=== PATIENT | male | born 1950 | race Caucasian/White ===

== ENCOUNTER → 2019-04-26 12:40 | Outpatient (CLI) | payer OTHER | END | disposition home or self-care (01) | LOC: D.US 12:40 | PROVIDERS: ATTEND Family Medicine | DX: N43.2 Other hydrocele (principal) ==

== ENCOUNTER → 2019-06-29 09:08 | Outpatient (CLI) | payer OTHER | END | disposition home or self-care (01) | LOC: D.CT 09:08 | PROVIDERS: ATTEND Family Medicine | DX: G45.9 Transient cerebral ischemic attack, unspecified (principal) ==

== ENCOUNTER → 2019-12-03 17:19 | Outpatient (CLI) | payer OTHER | END | disposition home or self-care (01) | LOC: D.LABREF 17:19 | PROVIDERS: ATTEND Orthopaedic Surgery | DX: M16.12 Unilateral primary osteoarthritis, left hip (principal) ==

== ENCOUNTER 2020-05-26 08:50 | Inpatient (IN) | payer OTHER ==
[~2020-05-26] VITALS: Ht 200.7 cm; Wt 92.7 kg
[~2020-05-26 08:50] MED LIST: AMIODARONE HCL200 MG PO; BAYER CHEWABLE81 MG PO; ELIQUIS5 MG PO; METOPROLOL TART25 MG PO; MULTAQ400 MG PO; NEXIUM20 MG PO; ZESTRIL40 MG PO
[2020-06-13] MEDS ORDERED: NORVASC10 MG PO (11:34)
[2020-06-13] MEDS ORDERED: ELIQUIS5 MG PO (11:35)
[2020-06-13 12:04] LABS: BASOPHILS 0.9 % (0-2); EOSINOPHILS 1.3 % (0-7); HEMATOCRIT 42.6 % (42.0-54.0); HEMOGLOBIN 14.1 g/dL (13.5-17.5); IMMATURE GRANULOCYTES 0.2 % (0-5); LYMPHOCYTE ABS# 1.01 10x3/uL (1.32-3.57); LYMPHOCYTES 21.7 % (15-50); MCH 32.1 pg (26.0-34.0); MCHC 33.1 g/dL (31.0-37.0); MEAN PLATELET VOLUME 10.5 fL (7.4-10.4); MONOCYTES 13.9 % (2-11); NEUTROPHIL ABS# 2.89 10x3/uL (1.78-5.38); PLATELET COUNT 244 10x3/uL (130-400); RBC 4.39 10x6/uL (4.20-6.10); RDW 13.4 % (11.5-14.5); WBC 4.7 10x3/uL (4.8-10.8)
[2020-06-13 12:06] LABS: BILIRUBIN NEGATIVE (NEGATIVE); KETONE NEGATIVE (NEGATIVE); NITRITE NEGATIVE (NEGATIVE); UROBILINOGEN NORMAL mg/dL (< 2)
[2020-06-13 12:23] LABS: ANION GAP 12.6 mmol/L (8-16); CALCIUM 9.2 mg/dL (8.5-10.1); CARBON DIOXIDE 26.7 mmol/L (21.0-32.0); CREATININE - SERUM 1.2 mg/dL (0.6-1.3); POTASSIUM - SERUM 4.3 mmol/L (3.5-5.1)
[2020-06-13 12:27] LABS: APTT 33.3 SECONDS (22.8-39.4); INR 1.31 (0.85-1.17); PROTIME 15.1 SECONDS (11.6-15.0)
[2020-06-18 06:17] VITALS: BP 135/86; BMI 23.1
[2020-06-18 06:50] LABS: APTT 30.1 SECONDS (22.8-39.4); INR 1.13 (0.85-1.17); PROTIME 13.5 SECONDS (11.6-15.0)
--- NOTE | 2020-06-18 07:58 | NUR ---
CAUTERY PAD PLACED ON RIGHT THIGH. PLASMA BLADE USED ON SETTING 6/8. AQUAMANTYS USED ON SETTING 170. CAUTERY PAD LOT#[id number] EXP.10/14/2021.
[2020-06-18 10:20] VITALS: BP 143/86
--- NOTE | 2020-06-18 10:23 | NUR ---
OPA IN AIRWAY ON ADMIT
--- NOTE | 2020-06-18 11:03 | NUR ---
RECEIVED PATIENT TO ROOM FROM RECOVERY, PATIENT IS AWAKE AND ORIENTED, STATED PAIN IS AT A 7, REMINDED HIM HE JUST RECEIVED PAIN MEDICATION BEFORE COMING DOWN BUT WILL REEVALUATE. VSS, CL IN REACH ICE PACK TO LEFT HIP. CDI. CONTINUE WITH PLAN OF CARE
[2020-06-18 11:25] VITALS: BP 143/86; Ht 200.7 cm; Wt 92.7 kg
[2020-06-18 11:39] VITALS: BP 139/92
[2020-06-18 15:35] VITALS: BP 138/94
--- NOTE | 2020-06-18 16:07 | NUR ---
PATIENT VOIDED ABOUT 150 IN URINAL, PATIENT STATED HE DOES NOT HAVE ANY PAIN JUST UNCOMFORTABLE. DECLINED PAINMEDICATION AT THIS TIME. ICE TO LEFT HIP, CL IN PLACE. CONTINUE WITH PLAN OF CARE
--- NOTE | 2020-06-18 18:14 | NUR ---
PATIENT C/O NOT EMPRYING BLADDER AND FEELS IF HE NEEDS TO GO ALL THE TIME. PATIENT VOIDED 300 BEFORE CATHETER PLACED. BENZ BAG FILLED TO 1200 INSTANTLY, CLAMPED AT 1200 AND TOLD PATIENT WE WILL UNCLAMP AFTER 30 MINUTES TO PREVENT SPASMS. NO OTHER NEEDS AT THIS TIME. CONTINUE WITH PLAN OF CARE
--- NOTE | 2020-06-18 19:00 | NUR ---
REPORT GIVEN BY ELVI WARD
[2020-06-18 19:15] VITALS: BP 143/77
--- NOTE | 2020-06-18 20:00 | NUR ---
PT IS IN BED READING. HE DOES NOT C/O OF PAIN BUT SOME DISCOMFORT. HE REFUSES PAIN MEDS. HE HAS A BENZ CATHETER IN PLACE DRAINING YELLOW URINE. HE HAS SCDS OOON WELL TEDS. PT HAS A PIV IN HIS RIGHT FOREARM WITH 1/2 NS INFUSING AT 50 ML/HR. HIS HIP DRESSING HAS SLIGHT AMT OF DRAINAGE ON IT. ICE PACK PLACED OVER THE DRESSING. PT IS DOZING ON AND OFF. CALL LIGHT WITH IN REACH AND SIDERAILS ELEVATED FOR HIS SAFETY.
--- NOTE | 2020-06-18 23:00 | NUR ---
BENZ BAG EMPTIED PER PT REQUEST. 1800 ML TAKEN FROM THE BAG.
[2020-06-19] VITALS: BP 141/84
--- NOTE | 2020-06-19 00:05 | NUR ---
AWAKE FOR VS. PT HAS NO NEEDS OR C/O AT THIS TIME. HE STILL STATES THAT HE HAS DISCOMFORT BUT NO PAIN. HE DECLINED PAIN MEDS AGAIN. CALL LIKE CLOSE, SIDERAILS ELEVATED.
[2020-06-19 04:00] VITALS: BP 132/94
--- NOTE | 2020-06-19 04:10 | NUR ---
PT STATES HE HAS BEEN ABLE TO REST SINCE TAKING PAIN MEDICINE. HE IS STILL DROWSEY.
--- NOTE | 2020-06-19 06:27 | NUR ---
PT HAS RESTED WELL SINCE TAKING PAIN MEDS. HE IS DOING WELL.
--- NOTE | 2020-06-19 07:11 | NUR ---
PATIENT AWAKE SITTING UP IN BED, PER PM NURSE PATIENT HAD 3600 OUT IN CATHETER OVERNIGHT. WILL DISCUSS WITH PROVIDERS WHETHER TO KEEP IN OR DC. NO OTHER NEEDS VOICED, CONTINUE WITH PLAN OF CARE
--- NOTE | 2020-06-19 07:26 | NUR ---
PATIENT TEMP THIS MORNING IS 100. ENCOURAGED USE OF INCENTIVE SPIROMETER, PATIENT C/O ROOM BEING WARM, TURNED AIR DOWN, CONTINUE WITH PLAN OF CARE
[2020-06-19 07:52] VITALS: BP 134/70
[2020-06-19 08:26] LABS: HEMATOCRIT 38.5 % (42.0-54.0); HEMOGLOBIN 12.8 g/dL (13.5-17.5); MCH 31.8 pg (26.0-34.0); MCHC 33.2 g/dL (31.0-37.0); MCV 95.5 fL (80.0-100.0); RBC 4.03 10x6/uL (4.20-6.10); RDW 13.5 % (11.5-14.5); WBC 6.4 10x3/uL (4.8-10.8)
--- NOTE | 2020-06-19 08:28 | CN ---
PATIENT NAME:BAR HOGAN MEDICAL RECORD: [id number] : 50 LOCATION:[place] D.1204 ADMIT DATE: 06/18/20 ACCOUNT: [id number] CONSULTING PHYSICIAN: BIBI MARY MD REFERRING PHYSICIAN: ALEJANDRO SCHAFER DO DATE OF CONSULTATION: 06/18/2020 REQUESTING PHYSICIAN: Alejandro Schafer DO REASON FOR CONSULTATION: Medical management. HISTORY OF PRESENT ILLNESS: This is a 70-year-old white male who was admitted for elective left total hip arthroplasty that occurred earlier today. Dr. Harrison is his primary care doctor and he is consulted for his medical problems. PAST MEDICAL HISTORY: Include hypertension, paroxysmal atrial fibrillation and hyperlipidemia. He had a TIA in June of 2019. PAST SURGICAL HISTORY: Excision of a spermatocele. ALLERGIES: SULFA. HOME MEDICATIONS: Include Nexium 20 mg once a day, aspirin 81 mg once a day, lisinopril 40 mg once a day, Eliquis 5 mg twice a day, amlodipine 10 mg once a day, metoprolol tartrate 25 mg twice a day. HABITS: He does smoke. Denies alcohol or drug use. FAMILY HISTORY: Father at 91 of some sort of cancer. Mother at 92 of unknown causes. SOCIAL HISTORY: He works at the [employer]. REVIEW OF SYSTEMS: GENERAL: No major weight changes. HEENT: No particular sinus or allergy problems. RESPIRATORY: No history of COPD or emphysema. CARDIAC: He has atrial fibrillation. GASTROINTESTINAL: Has occasional heartburn. GENITOURINARY: No significant problems there. MUSCULOSKELETAL: Has the arthritis in the left hip. NEUROLOGIC: No migraines or seizures. PSYCHIATRIC: Denies depression or melancholia. PHYSICAL EXAMINATION: VITAL SIGNS: Temperature 97.2, pulse 78, respirations 16, blood pressure 138/94, O2 sat 97%. GENERAL: He is awake and alert. He does not appear to be in acute distress at this time. SKIN: Warm and dry. HEENT: Grossly within normal limits. NECK: Supple. No JVD or bruit. HEART: Irregularly irregular. LUNGS: Fairly clear. ABDOMEN: Soft, flat, nontender. CONSULT REPORT [id number] BAR HOGAN EXTREMITIES: He has a dressing over his left hip. LABORATORY DATA: Reviewed and stable. ASSESSMENT: 1. Hypertension. 2. Atrial fibrillation. 3. Degenerative arthritis, status post left total hip arthroplasty. PLAN: We will monitor blood pressure. Continue his usual home medications. Other tests or procedures as warranted. TRANSINT:[id number] Voice Confirmation ID: [id number] DOCUMENT ID: [id number] BIBI MARY MD at 0828 CC: [id number] DICTATION DATE: 06/18/201814 REVENUE ACCOUNTANT: 06/19/20 0110 ADM IN [place] [id number] [place] [id number]
--- NOTE | 2020-06-19 10:29 | NUR ---
PATIENT WALKED WITH PT THIS MORNING, DOING WELL, STATES HE DOES NOT HURT IT IS JUST UNCOMFORTABLE. SITTING IN CHAIR AT BEDSIDE. NO SIGNS OF DISTRESS. CONTINUE WITH PLAN OF CARE
--- NOTE | 2020-06-19 12:14 | OP ---
PATIENT NAME: BAR HOGAN MEDICAL RECORD: [id number] :50 LOCATION:D. D.1204 ADMISSION DATE:06/18/20 SURGEON: ALEJANDRO SCHAFER DO DATE OF OPERATION: 06/18/2020 PROCEDURE PERFORMED: Left total hip arthroplasty. PREOPERATIVE DIAGNOSIS: Left hip osteoarthritis. POSTOPERATIVE DIAGNOSIS: Left hip osteoarthritis. INDICATIONS: Mr. Hogan is a 70-year-old male who has had left hip osteoarthritis for quite some time. He has been dealing with his pain for years really. He has tried injections to no avail and other means of treatment including physical therapy and he was tired of dealing with pain and wanted something done surgically. We had him set up for surgery in December I believe and then he had a bout with AFib and wanted to get that arranged and also some high blood pressure. Once he got that taken care of, he was ready for surgery. I informed him the risks of the surgery including infection, bleeding, need for further surgery, continued pain, fracture, damage to nerves or vessels in the area of infection, loss of motion, groin pain, failure of implants, leg length discrepancy, blood clots and even and he signed a consent. SURGEON: Alejandro Schafer DO DESCRIPTION OF PROCEDURE: The patient was taken to the operative suite, laid in the supine position, given general anesthetic and intubated. He was given 80 mg of gentamicin, 2 grams of Ancef and a gram of TXA. He was then positioned on the [place] table. The left hip was prepped and draped in sterile fashion. Timeout was performed. Everyone was in agreeance with the correct site, side, patient and procedure. I then made an incision along the tensor fasciae latae muscle. I then made careful dissection down to the muscle belly, took the fascia anteriorly and muscle belly posteriorly. I then opened up the rectus interval of the rectus medially and the tensor fasciae latae laterally. I then encountered the ascending branch of lateral femoral circumflex, tied it off and coagulated it and cut it. I then coagulated any of the bleeding with Aquamantys throughout the procedure. I then put two Hohmanns around the neck of the femur and opened up the capsule, tagged the capsule and put Hohmanns intracapsularly and brought the x-ray and made a neck cut, removed the head and then removed the labrum and pulvinar after putting in the Charnley. I then coagulated any bleeding at that time and the acetabulum. I then reamed up to a 60. After I reamed to a 60, impacted in a 60 cup. It fit very well and was very solid. I checked with the [place], pushed on it and it did not move whatsoever. I then impacted in the liner. Again, rechecked it and it did not move. The femur was then exposed. I released the ischial femoral ligament as well as the posterior capsule and began by getting the canal finder in the canal and the cookie cutter to get laterally. I then broached up to a 16, reduced the hip and saw that it was a little bit of varus. I then removed that stem and dislocated the hip, removed the stem and then got the cookie cutter went a little more lateral and then broached up to 18 and trialled that. Once we trialled with a standard, saw that we needed to go to minus it then went to a +3 and had equal lengths to the right off the lesser trochanters. Then removed the trials and put in the actual implants, impacted and reduced the hip with a dual mobility head with a +3 neck. X-rays were taken. There are no fractures seen in the femur as we did internal and external rotation and a straight AP and the hip moved very well. Small OPERATIVE REPORT [id number] BAR HOGAN bowel movement only on the large ball. I then got AP pelvis in his equal length to the right, off the lesser trochanter. I then irrigated with 10% povidine-iodine and 500 mL of normal saline solution and Bret Alva, certified surgical assistant then irrigated that out with a liter of normal saline, put in Harpreet and vancomycin and tobramycin powder, closed the tensor fasciae latae fascia with #1 Vicryl in a [id number] and then a running locking stitch and the skin with 2-0 Vicryl in inverted interrupted fashion and 4-0 Monocryl ran on the skin and dressed with a Prineo, and once it dried Telfa and Tegaderm. He was then awakened and taken to recovery in stable condition. BLOOD LOSS: Approximately 300 mL. COMPLICATIONS: None. TRANSINT:[id number] Voice Confirmation ID: [id number] DOCUMENT ID: [id number] ALEJANDRO SCHAFER DO at 1214 CC: KEYONNA VALLES [id number] DICTATION DATE: 06/18/20911 FOLDER TAPER OPERATOR: 06/18/20 1510 ADM IN [facility] [address] [id number]
--- NOTE | 2020-06-19 15:54 | NUR ---
PATIENT VOIDED AND IS READY FOR DC, PENDING DC ORDERS CONTINUE ITH CARE UNTIL DC
--- NOTE | 2020-06-19 16:36 | NUR ---
I have reviewed this patient and I concur with the Shift Assessment completed by the Licensed Practical Nurse today this shift.
[2020-06-19] MEDS ORDERED: HYDROCODON-ACE1 EA10 PO (17:07)
--- NOTE | 2020-06-19 17:07 | NUR ---
PATIENT VOIDED ANOTHER 500CC IN URINAL, PENDING DC, IV DC WITH CATHETER INTACT. CONTINUE WITH PLAN OF CARE
== END 2020-06-19 18:05 | disposition home or self-care (01) | DRG 470 ==
LOC: D.M3 06-18 05:45 → D.SDCHOLD 06-18 05:45 → D.M3 06-18 10:02
PROVIDERS: Anesthesiology; ADMIT Orthopaedic Surgery; ATTEND Orthopaedic Surgery
PROC: 0SRB0J9 Replacement of Left Hip Joint with Synthetic Substitute, Cemented, Open Approach (ICD-10-PCS; principal; 2020-06-18 07:45)
DX: M16.12 Unilateral primary osteoarthritis, left hip (principal); I10 Essential (primary) hypertension; I48.0 Paroxysmal atrial fibrillation; E78.5 Hyperlipidemia, unspecified; R33.9 Retention of urine, unspecified; Z87.891 Personal history of nicotine dependence